=== PATIENT | female | born 1965 | race Caucasian/White ===

== ENCOUNTER 2017-01-02 06:02 | Day surgery (SDC) | payer OTHER ==
[~2017-01-02] VITALS: Ht 160 cm; Wt 63.5 kg
[2017-01-02] MEDS ORDERED: [UNRECOGNIZED DRUG - OTHER] PO (07:31)
[2017-01-02] MEDS ORDERED: LIDOCAINE 2% 100 MG/5 ML UJET TP ONE (07:58)
== END 2017-01-02 09:03 | disposition home or self-care (01) ==
LOC: MDS 06:02 → MMU 06:13 → MDS 09:03
PROVIDERS: ATTEND Internal Medicine Gastroenterology
DX: Z12.11 Encounter for screening for malignant neoplasm of colon (principal); K57.30 Diverticulosis of large intestine without perforation or abscess without bleeding